=== PATIENT | female | born 1990 | race Hispanic/Latino ===

== ENCOUNTER 2016-11-07 16:01 | Emergency (ER) | payer SELFPAY ==
[2016-11-07] MEDS ORDERED: DUONEB 0.5 MG-3 MG/3 ML SOLN IH ONE (18:34)
[2016-11-07] MEDS ORDERED: DELTASONE PO ONE (18:35)
--- NOTE | 2016-11-07 18:50 | Emergency Department Report ---
ED General Adult HPI - General Chief complaint: Adult Asthma Stated complaint: ASTHMA/CHEST PAIN/COUGH Time Seen by Provider: 11/07/16 18:30 Source: patient Mode of arrival: Ambulatory Limitations: No Limitations - History of Present Illness Initial comments: PT c/o asthma exacerbation x 3 weeks. PT states she was seen for same thing in July and the RXs she got helped her. PT states she used the rest of her albuterol inhaler. PT states she ran out today. PT states her wheezing is worse at night and she did not want to be without her inhaler tonight. Complaint: asthma exacerbation Onset/Timin -: Gradual, week(s) Location: chest Severity scale (0 -10): 3 Quality: aching (when coughing ) Consistency: intermittent Improves with: other (RX medication ) Associated Symptoms: denies: fever/chills - Related Data Previous Rx's Medication Instructions Recorded Last Taken Type ALBUTEROL Inhaler [Proair] 2 puff IH QID PRN #1 inhalation 11/07/16 Unknown Rx Prednisone [predniSONE 10 mg 10 mg PO .TAPER #1 tab.ds.pk 11/07/16 Unknown Rx (6-Day Pack, 21 Tabs)] Promethazine /Codeine 5 ml PO Q6H PRN #100 ml 11/07/16 Unknown Rx [Phenergan/Codeine 6.25-10 mg/5Ml] Allergies Allergy/AdvReac Type Severity Reaction Status Date / Time No Known Allergies Allergy Verified 03/31/15 11:35 ED Review of Systems ROS: Stated complaint: ASTHMA/CHEST PAIN/COUGH Other details as noted in HPI Comment: All other systems reviewed and negative Constitutional: denies: chills, fever Respiratory: cough, wheezing, other (intermittent productive cough - yellow sputum ) Gastrointestinal: denies: nausea, vomiting ED Past Medical Hx - Past Medical History Previous Medical History?: Yes Hx Asthma: Yes Additional medical history: Bronchitis - Surgical History Past Surgical History?: No - Social History Smoking Status: Never Smoker Substance Use Type: Alcohol - Medications Home Medications: Home Medications Medication Instructions Recorded Confirmed Last Taken Type ALBUTEROL Inhaler [Proair] 2 puff IH QID PRN #1 inhalation 11/07/16 Unknown Rx Prednisone [predniSONE 10 mg 10 mg PO .TAPER #1 tab.ds.pk 11/07/16 Unknown Rx (6-Day Pack, 21 Tabs)] Promethazine /Codeine 5 ml PO Q6H PRN #100 ml 11/07/16 Unknown Rx [Phenergan/Codeine 6.25-10 mg/5Ml] ED Physical Exam - General Limitations: No Limitations General appearance: alert, in no apparent distress - Head Head exam: Present: atraumatic, normocephalic - Eye Eye exam: Present: normal appearance. Absent: conjunctival injection - ENT ENT exam: Present: normal exam, normal orophraynx, mucous membranes moist, TM's normal bilaterally, normal external ear exam - Neck Neck exam: Present: normal inspection. Absent: lymphadenopathy - Respiratory Respiratory exam: Present: wheezes (chela, L>R ). Absent: respiratory distress, rhonchi, stridor, chest wall tenderness, accessory muscle use - Cardiovascular Cardiovascular Exam: Present: regular rate, normal rhythm, normal heart sounds - Extremities Exam Extremities exam: Present: normal inspection, full ROM - Back Exam Back exam: Present: normal inspection. Absent: CVA tenderness (R), CVA tenderness (L) - Neurological Exam Neurological exam: Present: alert, oriented X3 - Psychiatric Psychiatric exam: Present: normal affect, normal mood - Skin Skin exam: Present: warm, dry, intact, normal color ED Course Vital Signs 11/07/16 11/07/16 16:29 19:52 Temperature 98.8 F Pulse Rate 78 67 Respiratory 20 16 Rate Blood Pressure 145/89 Blood Pressure 138/96 [Left] O2 Sat by Pulse 96 100 Oximetry - Reevaluation(s) Reevaluation #1: 11/07/16 18:52 PT aware of plan of care. Reevaluation #2: 11/07/16 19:38 PT states she is feeling much better. PT given strict return precautions. PT' s lungs cta at this time. - Pulse Oximetry Interpretation Digit-Finger Initial Pulse Oximetry Readin Actions Taken: none ED Medical Decision Making - Differential Diagnosis ashma, bronchitis Critical Care Time: No Critical care attestation.: If time is entered above; I have spent that time in minutes in the direct care of this critically ill patient, excluding procedure time. ED Disposition Clinical Impression: Asthma exacerbation Qualifiers: Asthma severity: unspecified severity Qualified Code(s): J45.901 - Unspecified asthma with (acute) exacerbation Disposition: DISCHARGED TO HOME OR SELFCARE Is pt being admited?: No Does the pt Need Aspirin: No Condition: Stable Instructions: Asthma (ED) Additional Instructions: no driving or ETOH after cough syrup Prescriptions: ALBUTEROL Inhaler [Proair] 2 puff IH QID PRN #1 inhalation PRN Reason: Shortness Of Breath Prednisone [predniSONE 10 mg (6-Day Pack, 21 Tabs)] 10 mg PO .TAPER #1 tab.ds.pk Promethazine /Codeine [Phenergan/Codeine 6.25-10 mg/5Ml] 5 ml PO Q6H PRN #100 ml PRN Reason: cough Referrals: PRIMARY CARE, [Primary Care Provider] - 3-5 Days [facility] [Outside] - 3-5 Days Time of Disposition: 19:39
[2016-11-07 19:53] VITALS: BP 138/96
== END 2016-11-07 19:53 | disposition home or self-care (01) ==
LOC: ED 16:01
DX: J45.901 Unspecified asthma with (acute) exacerbation (principal)
CPT/HCPCS: 99283; J7512

== ENCOUNTER 2017-01-01 21:56 | Emergency (ER) | payer SELFPAY ==
[2017-01-02] MEDS ORDERED: DUONEB 0.5 MG-3 MG/3 ML SOLN IH ONE ×2 (03:07→03:18)
[2017-01-02 03:10] VITALS: BP 127/78
[2017-01-02] MEDS ORDERED: DECADRON IM ONE (04:19)
[2017-01-02] MEDS ORDERED: PHENERGAN/CODEINE 6.25-10 MG/5ML PO ONE (04:20)
--- NOTE | 2017-01-02 05:57 | XRay Report ---
FINAL REPORT PROCEDURE: XR CHEST ROUTINE 2V TECHNIQUE: PA and lateral chest radiographs were obtained. CPT 12341 HISTORY: cough, wheezing COMPARISON: No prior studies are available for comparison. FINDINGS: Heart: Normal. Mediastinum/Vessels: Normal. Lungs/Pleural space: Normal. Bony thorax: No acute osseous abnormality. Other: IMPRESSION: Normal examination.
--- NOTE | 2017-01-02 06:25 | Emergency Department Report ---
ED Asthma HPI - General Chief Complaint: Adult Asthma Stated Complaint: ASTHMA Source: patient Mode of arrival: Ambulatory Limitations: No Limitations - History of Present Illness Initial Comments: 26 year old female presents to ED with wheezing and productive cough x1 week. patient has history of asthma and states she is out of her medication. patient is stable, neurologically intact and in no acute distress. MD Complaint: "asthma attack", shortness of breath, wheezing -: Gradual, week(s) Asthma History: childhood onset Severity: mild Context: ran out of meds Associated Symptoms: productive cough. denies: fever, chest pain - Related Data Current Asthma Therapy: inhaled bronchodilator Previous Rx's Medication Instructions Recorded Last Taken Type Promethazine /Codeine 5 ml PO Q6H PRN #100 ml 11/07/16 Unknown Rx [Phenergan/Codeine 6.25-10 mg/5Ml] ALBUTEROL Inhaler [ProAir HFA 2 puff IH QID PRN #1 inhalation 01/02/17 Unknown Rx Inhaler] Prednisone [predniSONE 10 mg 10 mg PO .TAPER #1 tab.ds.pk 01/02/17 Unknown Rx (6-Day Pack, 21 Tabs)] Allergies Allergy/AdvReac Type Severity Reaction Status Date / Time No Known Allergies Allergy Verified 03/31/15 11:35 ED Review of Systems ROS: Stated complaint: ASTHMA Other details as noted in HPI Constitutional: denies: chills, fever Eyes: denies: eye pain, eye discharge, vision change ENT: denies: ear pain, throat pain Respiratory: cough, shortness of breath, wheezing Cardiovascular: denies: chest pain, palpitations Endocrine: no symptoms reported Gastrointestinal: denies: abdominal pain, nausea, diarrhea Genitourinary: denies: urgency, dysuria, discharge Musculoskeletal: denies: back pain, joint swelling, arthralgia Skin: denies: rash, lesions Neurological: denies: headache, weakness, paresthesias Psychiatric: denies: anxiety, depression Hematological/Lymphatic: denies: easy bleeding, easy bruising ED Past Medical Hx - Past Medical History Previous Medical History?: Yes Hx Asthma: Yes Additional medical history: Bronchitis - Surgical History Past Surgical History?: No - Social History Smoking Status: Former Smoker Substance Use Type: None - Medications Home Medications: Home Medications Medication Instructions Recorded Confirmed Last Taken Type Promethazine /Codeine 5 ml PO Q6H PRN #100 ml 11/07/16 Unknown Rx [Phenergan/Codeine 6.25-10 mg/5Ml] ALBUTEROL Inhaler [ProAir HFA 2 puff IH QID PRN #1 inhalation 01/02/17 Unknown Rx Inhaler] Prednisone [predniSONE 10 mg 10 mg PO .TAPER #1 tab.ds.pk 01/02/17 Unknown Rx (6-Day Pack, 21 Tabs)] ED Physical Exam - General Limitations: No Limitations General appearance: alert, in no apparent distress - Head Head exam: Present: atraumatic, normocephalic - Eye Eye exam: Present: normal appearance - ENT ENT exam: Present: mucous membranes moist - Neck Neck exam: Present: normal inspection - Respiratory Respiratory exam: Present: wheezes - Expanded Respiratory Exam Expanded Location: Wheezes: Right, Left, Upper, Lower - Cardiovascular Cardiovascular Exam: Present: regular rate, normal rhythm. Absent: systolic murmur, diastolic murmur, rubs, gallop - GI/Abdominal GI/Abdominal exam: Present: soft, normal bowel sounds. Absent: distended, tenderness, guarding - Extremities Exam Extremities exam: Present: normal inspection, full ROM - Back Exam Back exam: Present: normal inspection, full ROM - Neurological Exam Neurological exam: Present: alert, oriented X3, normal gait - Psychiatric Psychiatric exam: Present: normal affect, normal mood - Skin Skin exam: Present: warm, dry, intact, normal color. Absent: rash ED Course Vital Signs 01/01/17 01/02/17 22:22 03:07 Temperature 98.4 F 98.1 F Pulse Rate 107 H 87 Respiratory 22 26 H Rate Blood Pressure 138/99 Blood Pressure 127/78 [Left] O2 Sat by Pulse 99 98 Oximetry ED Medical Decision Making - Lab Data Lab Results 01/02/17 Range/Units 03:05 Urine HCG, Qual Negative (Negative) - Radiology Data Radiology results: report reviewed Chest xray Normal examination - Medical Decision Making 26 year old female presents to ED with asthma exacerbation, wheezing, cough x1 week. patient has recieved IM steroids, codeine cough syrup and breathing treatment during ED visit and no longer has wheezing in any lung greer prior to discharge. patient's respiratory rate has been taken manually by provider and is 18 breaths per minute prior to discharge. patient has no labored breathing or respiratory distress prior to discharge and talking in complete sentences. patient will be given RX for proair, oral steroids. patient is stable,neurologically intact and in no acute distress. Critical care attestation.: If time is entered above; I have spent that time in minutes in the direct care of this critically ill patient, excluding procedure time. ED Disposition Clinical Impression: Asthma exacerbation Disposition: DISCHARGED TO HOME OR SELFCARE Is pt being admited?: No Does the pt Need Aspirin: No Condition: Stable Instructions: Asthma (ED) Prescriptions: ALBUTEROL Inhaler [ProAir HFA Inhaler] 2 puff IH QID PRN #1 inhalation PRN Reason: Shortness Of Breath Prednisone [predniSONE 10 mg (6-Day Pack, 21 Tabs)] 10 mg PO .TAPER #1 tab.ds.pk Referrals: PRIMARY CARE, [Primary Care Provider] - 3-5 Days
== END 2017-01-02 06:46 | disposition home or self-care (01) ==
LOC: ED 21:56
DX: J45.901 Unspecified asthma with (acute) exacerbation (principal); Z87.891 Personal history of nicotine dependence
CPT/HCPCS: 71020; 81025; 96372; 99283; J1100

== ENCOUNTER 2017-02-05 18:01 | Emergency (ER) | payer SELFPAY ==
[2017-02-05] MEDS ORDERED: DUONEB 0.5 MG-3 MG/3 ML SOLN IH ONE (19:26)
--- NOTE | 2017-02-05 22:00 | Emergency Department Report ---
- General Chief Complaint: Upper Respiratory Infection Stated Complaint: COUGH/SOB/CHEST PAIN Time Seen by Provider: 02/05/17 19:57 Source: patient Mode of arrival: Ambulatory Limitations: No Limitations - History of Present Illness Initial Comments: This is a 26-year-old female well-nourished with nontoxic or ill in appearance presents with a productive cough for the past month. Patient stated has been diagnosed with bronchitis and asthma last month and was treated with steroids with minimal relief. Associated symptoms includes productive cough that is yellowish, wheezing, subjective fever and chills. Patient denies any shortness of breath, chest pain, headache, dizziness, stiff neck, blurry vision, numbness , tingling, nausea or vomiting. Patient states allergies to asthma. Denies any drug allergies. MD Complaint: cough (productive yellowish) -: Gradual, month(s) (1) Severity: mild Severity scale (0 -10): 0 Consistency: constant Improves With: nothing Worsens With: nothing Associated Symptoms: fever, chills, cough (productive yellowish). denies: myalgias, diaphoresis, headache, rhinorrhea, nasal congestion, sore throat, stiff neck, chest pain, shortness of breath, abdominal pain, nausea, vomiting, diarrhea, dysuria, rash, confusion, right sweats, weight loss, epistaxis, hoarseness, ear pain Treatments Prior to Arrival: none - Related Data Previous Rx's Medication Instructions Recorded Last Taken Type Promethazine /Codeine 5 ml PO Q6H PRN #100 ml 11/07/16 Unknown Rx [Phenergan/Codeine 6.25-10 mg/5Ml] ALBUTEROL Inhaler [ProAir HFA 2 puff IH QID PRN #1 inhalation 01/02/17 Unknown Rx Inhaler] Prednisone [predniSONE 10 mg 10 mg PO .TAPER #1 tab.ds.pk 01/02/17 Unknown Rx (6-Day Pack, 21 Tabs)] ALBUTEROL Inhaler [ProAir HFA 2 puff IH QID PRN #1 inhalation 02/05/17 Unknown Rx Inhaler] Azithromycin [Zithromax Z-JER] 250 mg PO DAILY #6 tablet 02/05/17 Unknown Rx predniSONE [Deltasone] 20 mg PO BID #10 tab 02/05/17 Unknown Rx Allergies Allergy/AdvReac Type Severity Reaction Status Date / Time No Known Allergies Allergy Verified 03/31/15 11:35 ED Review of Systems ROS: Stated complaint: COUGH/SOB/CHEST PAIN Other details as noted in HPI Constitutional: denies: chills, fever Eyes: denies: eye pain, eye discharge, vision change ENT: denies: ear pain, throat pain Respiratory: denies: cough, shortness of breath, wheezing Cardiovascular: denies: chest pain, palpitations Endocrine: no symptoms reported Gastrointestinal: denies: abdominal pain, nausea, diarrhea Genitourinary: denies: urgency, dysuria, discharge Musculoskeletal: denies: back pain, joint swelling, arthralgia Skin: denies: rash, lesions Neurological: denies: headache, weakness, paresthesias Psychiatric: denies: anxiety, depression Hematological/Lymphatic: denies: easy bleeding, easy bruising ED Past Medical Hx - Past Medical History Hx Asthma: Yes Additional medical history: Bronchitis - Social History Smoking Status: Never Smoker Substance Use Type: None - Medications Home Medications: Home Medications Medication Instructions Recorded Confirmed Last Taken Type Promethazine /Codeine 5 ml PO Q6H PRN #100 ml 11/07/16 Unknown Rx [Phenergan/Codeine 6.25-10 mg/5Ml] ALBUTEROL Inhaler [ProAir HFA 2 puff IH QID PRN #1 inhalation 01/02/17 Unknown Rx Inhaler] Prednisone [predniSONE 10 mg 10 mg PO .TAPER #1 tab.ds.pk 01/02/17 Unknown Rx (6-Day Pack, 21 Tabs)] ALBUTEROL Inhaler [ProAir HFA 2 puff IH QID PRN #1 inhalation 02/05/17 Unknown Rx Inhaler] Azithromycin [Zithromax Z-JER] 250 mg PO DAILY #6 tablet 02/05/17 Unknown Rx predniSONE [Deltasone] 20 mg PO BID #10 tab 02/05/17 Unknown Rx ED Physical Exam - General Limitations: No Limitations General appearance: alert, in no apparent distress - Head Head exam: Present: atraumatic, normocephalic, normal inspection - Eye Eye exam: Present: normal appearance, PERRL, EOMI. Absent: scleral icterus, conjunctival injection, nystagmus, periorbital swelling, periorbital tenderness Pupils: Present: normal accommodation - ENT ENT exam: Present: normal exam, normal orophraynx, mucous membranes moist, TM's normal bilaterally, normal external ear exam - Neck Neck exam: Present: normal inspection, full ROM. Absent: tenderness, meningismus, lymphadenopathy, thyromegaly - Respiratory Respiratory exam: Present: normal lung sounds bilaterally, wheezes (bilateral upper and lower lobes). Absent: respiratory distress, rales, rhonchi, stridor, chest wall tenderness, accessory muscle use, decreased breath sounds, prolonged expiratory - Cardiovascular Cardiovascular Exam: Present: regular rate, normal rhythm, normal heart sounds. Absent: bradycardia, tachycardia, irregular rhythm, systolic murmur, diastolic murmur, rubs, gallop - GI/Abdominal GI/Abdominal exam: Present: soft, normal bowel sounds. Absent: distended, tenderness, guarding, rebound, rigid, diminished bowel sounds, hyperactive bowel sounds, hypoactive bowel sounds - Rectal Rectal exam: Present: deferred - Extremities Exam Extremities exam: Present: normal inspection, full ROM, normal capillary refill. Absent: tenderness, pedal edema, joint swelling, calf tenderness - Back Exam Back exam: Present: normal inspection, full ROM. Absent: tenderness, CVA tenderness (R), CVA tenderness (L), muscle spasm, paraspinal tenderness, vertebral tenderness, rash noted - Neurological Exam Neurological exam: Present: alert, oriented X3, CN II-XII intact, normal gait - Psychiatric Psychiatric exam: Present: normal affect, normal mood. Absent: depressed, agitated - Skin Skin exam: Present: warm, dry, intact, normal color. Absent: rash ED Course Vital Signs 02/05/17 02/05/17 02/05/17 19:23 19:35 19:46 Temperature 98.6 F Pulse Rate 80 Pulse Rate [ 71 75 Posterior Bilateral Throughout] Respiratory 18 Rate Respiratory 20 20 Rate [Posterior Bilateral Throughout] Blood Pressure 150/116 O2 Sat by Pulse 100 Oximetry - Reevaluation(s) Reevaluation #1: 02/05/17 22:20 Patient is watching tv and stated feels much better after DuoNeb & Solu-Medrol treatment. No signs of distress noted. ED Medical Decision Making - Medical Decision Making Ed cours: This is a 26-year-old female that presents with upper respiratory infection 1-after my physical exam, patient received a chest x-ray to rule out pneumonia. Dictated by Dr. Victoria; 2- patient received Z-Jer and was instructed to finish full course of antibiotics as prescribed. 3. Patient was also instructed to follow-up with her primary care doctor in 3- 5 days or if symptoms worsen return back to emergency as soon as possible.- 4- at time time of discharge, the patient does not seem toxic or ill in appearance. No acute signs of distress noted. Patient agrees to discharge treatment plan of care. No further questions noted by the patient. 5- Patient also received albuterol and prednisone at the time of discharge. I educated patient how to a use albuterol on patient states she understands and agrees to the plan of care at the time of discharge. Critical care attestation.: If time is entered above; I have spent that time in minutes in the direct care of this critically ill patient, excluding procedure time. ED Disposition Clinical Impression: Upper respiratory infection Qualifiers: URI type: unspecified URI Qualified Code(s): J06.9 - Acute upper respiratory infection, unspecified Disposition: DC- TO HOME OR SELFCARE Is pt being admited?: No Does the pt Need Aspirin: No Condition: Stable Instructions: Upper Respiratory Infection (ED), Azithromycin (By mouth), Albuterol (By breathing), Prednisone (By mouth) Additional Instructions: A full course of antibiotics as prescribed. Take prednisone as prescribed as well. Take albuterol as educated as needed during difficulty breathing. Follow-up with her primary care doctor in 3-5 days or if symptoms worsen return back to emergency room as soon as possible. Prescriptions: ALBUTEROL Inhaler [ProAir HFA Inhaler] 2 puff IH QID PRN #1 inhalation PRN Reason: Shortness Of Breath Azithromycin [Zithromax Z-JER] 250 mg PO DAILY #6 tablet predniSONE [Deltasone] 20 mg PO BID #10 tab Referrals: PRIMARY CARE, [Primary Care Provider] - 3-5 Days RICK BAL JR, MD [Staff Physician] - 3-5 Days [facility] [Outside] - 3-5 Days [facility] [Outside] - 3-5 Days Forms: Work/School Release Form(ED)
--- NOTE | 2017-02-05 22:34 | XRay Report ---
FINAL REPORT PROCEDURE: XR CHEST ROUTINE 2V TECHNIQUE: PA and lateral views of the chest are submitted. HISTORY: wheezing with hx of pna COMPARISON: Chest two views 01/02/2017 FINDINGS: The trachea is midline. The heart is normal in size. The lungs are clear. There is no evident pneumothorax or pleural fluid. The thoracic cage is intact. Left nipple ring is noted. IMPRESSION: No radiographically evident acute cardiopulmonary disease.
[2017-02-05 23:10] VITALS: BP 131/90
== END 2017-02-05 23:09 | disposition home or self-care (01) ==
LOC: ED 18:01
DX: J06.9 Acute upper respiratory infection, unspecified (principal); J45.909 Unspecified asthma, uncomplicated
CPT/HCPCS: 71020; 94640; 96372; 99283; J2930

== ENCOUNTER 2017-03-03 20:51 | Emergency (ER) | payer SELFPAY ==
[2017-03-03] MEDS ORDERED: PROVENTIL IH ONE (21:14)
[2017-03-03 21:35] LABS: Hemoglobin 13.6 gm/dl (10.1-14.3); Mean Corpuscular HGB Conc 34 % (30-34); Mean Corpuscular Hemoglobin 31 pg (28-32); Mean Corpuscular Volume 93 fl (79-97); Platelet Count 360 K/mm3 (140-440); Red Blood Count 4.32 M/mm3 (3.65-5.03); White Blood Count 7.5 K/mm3 (4.5-11.0)
--- NOTE | 2017-03-03 21:42 | XRay Report ---
FINAL REPORT EXAM: XR CHEST ROUTINE 2V HISTORY: Shortness of breath TECHNIQUE: PA and lateral chest radiographs PRIORS: Chest radiograph 02/05/2017 FINDINGS: No focal consolidations are seen in the lungs and there are no pleural effusions.The cardiomediastinal silhouette is within normal limits for size and contour. No acute osseous abnormality is identified. IMPRESSION: 1. No definite radiographic evidence of acute cardiopulmonary disease. 2. No focal infiltrate is identified.
[2017-03-03 21:52] LABS: Anion Gap 18 mmol/L; Blood Urea Nitrogen 8 mg/dL (7-17); Calcium 8.8 mg/dL (8.4-10.2); Carbon Dioxide 22 mmol/L (22-30); Chloride 100.6 mmol/L (98-107); Glucose 83 mg/dL (65-100); Potassium 3.5 mmol/L (3.6-5.0); Sodium 137 mmol/L (137-145)
[2017-03-03 22:25] LABS: Basophils % (Manual) 0 % (0.0-1.8); Blastocytes % (Manual) 0 %
[2017-03-03 22:26] LABS: Diff Status Complete; Platelet Estimate Consistent w Auto; RBC Morphology Normal
[2017-03-04] MEDS ORDERED: ZITHROMAX PO ONE (01:30)
[2017-03-04] MEDS ORDERED: TYLENOL/CODEINE PO ONE (01:30)
[2017-03-04] MEDS ORDERED: DUONEB *Not for PRN Use IH ONE (01:30)
--- NOTE | 2017-03-04 01:34 | Emergency Department Report ---
HPI - General Chief Complaint: Dyspnea/Respdistress Time Seen by Provider: 03/04/17 01:24 - HPI HPI: She is a 26-year-old female with a history of asthma on Proventil inhaler who presents to ED complaining of cough and shortness of breath for the past 10 days. Patient states about 10 days ago she started to experience some coughing. She states cough is dry and nonproductive. Patient states a couple days ago cough is nonproductive with yellowish brownish mucus from intermittent coughing. Patient states cough and is also blood worse. Patient states she used her inhaler which was not working. She states she is some fever and chills and intermittent sweating. She denies chest pain/abdominal pain/diarrhea/constipation/headache/blurred visions or any other problems. ED Past Medical Hx - Past Medical History Hx Asthma: Yes Additional medical history: Bronchitis, pnuemonia - Surgical History Past Surgical History?: No - Social History Smoking Status: Former Smoker Substance Use Type: None - Medications Home Medications: Home Medications Medication Instructions Recorded Confirmed Last Taken Type ALBUTEROL Inhaler [ProAir HFA 2 puff IH QID PRN #1 inhalation 02/05/17 Unknown Rx Inhaler] Azithromycin [Zithromax Z-JER] 250 mg PO DAILY #6 tablet 02/05/17 Unknown Rx predniSONE [Deltasone] 20 mg PO BID #10 tab 02/05/17 Unknown Rx ALBUTEROL Inhaler [ProAir HFA 2 puff IH QID PRN #1 inhalation 03/04/17 Unknown Rx Inhaler] Azithromycin [Zithromax TAB] 250 mg PO DAILY #4 tablet 03/04/17 Unknown Rx Prednisone [predniSONE 10 mg 10 mg PO .TAPER #1 tab.ds.pk 03/04/17 Unknown Rx (6-Day Pack, 21 Tabs)] Promethazine /Codeine 5 ml PO Q6H PRN #100 ml 03/04/17 Unknown Rx [Phenergan/Codeine 6.25-10 mg/5 ml] ED Review of Systems ROS: Stated complaint: SOB, FEVER, CHEST PAIN Other details as noted in HPI Constitutional: denies: chills, fever Eyes: denies: eye pain, eye discharge, vision change ENT: denies: ear pain, throat pain, dental pain, hearing loss, congestion Respiratory: cough, shortness of breath, wheezing Cardiovascular: denies: chest pain, palpitations Endocrine: no symptoms reported Gastrointestinal: denies: abdominal pain, nausea, vomiting, diarrhea, constipation Genitourinary: denies: urgency, dysuria, frequency, hematuria, discharge Musculoskeletal: denies: back pain, joint swelling, arthralgia Skin: denies: rash, lesions Neurological: denies: headache, weakness, numbness, paresthesias, confusion Psychiatric: denies: anxiety, depression Hematological/Lymphatic: denies: easy bleeding, easy bruising Physical Exam - Physical Exam Vital Signs: Vital Signs 03/03/17 21:06 Temperature 98.3 F Pulse Rate 101 H Respiratory 26 H Rate Blood Pressure 120/80 Blood Pressure 120/80 [Left] O2 Sat by Pulse 100 Oximetry Physical Exam: GENERAL: Alert and oriented x3, no apparent distress, Normal Gait, atraumatic. HEAD: Head is normocephalic and a-traumatic. NOSE: Nose symetrical, Nontender,Nares appeared normal. MOUTH:Mouth is well hydrated and without lesions. Tonsils nonerythematous or swollen, Uvula midline, Tongue not elevated. Mucous membranes are moist. Posterior pharynx clear, no exudate or lesions. Patent airways. NECK: Supple. Non edematous, No carotid bruits. No lymphadenopathy or thyromegaly. No C-spine tenderness LUNGS: Symetrical with respiration, bilateral wheezing, no rales or crackles, CTAB. 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 Non tender to palpation ABDOMEN: No organomegaly was noted,Positive bowel sounds, soft, and non- distended. . Nontender to palpation on all Quadrants, NO CVA tenderness. SKIN: Warm and dry, No lesions, No ulceration or induration present. ED Course Vital Signs 03/03/17 21:06 Temperature 98.3 F Pulse Rate 101 H Respiratory 26 H Rate Blood Pressure 120/80 Blood Pressure 120/80 [Left] O2 Sat by Pulse 100 Oximetry ED Medical Decision Making - Lab Data Result diagrams: 03/03/17 21:17 03/03/17 21:17 - EKG Data EKG shows normal: sinus rhythm Rate: normal - EKG Data When compared to previous EKG there are: no significant change (from EKG from ) 03/04/17 01:35 Left [place] deviation - Medical Decision Making 26-year-old female presents with upper respiratory infection/bronchitis ED course: She received 1 dose of azithromycin, 2 breathing treatments, Tylenol with codeine for coughing 60 mg of prednisone CBC, CMP, cardiac enzymes, test, EKG, chest x-ray ordered on patient. labs all within normal limits negative troponin, negative test. Chest x-ray, shows no acute cardiopulmonary infiltrates or process Discussed this findings with patient. Reports feeling better after secondary to present treatment. Discussed the patient to follow up with primary care physician. Discussed the antibiotics and home medications as prescribed. Vital signs are normalized home patient is in no acute or respiratory distress Patient reports to feeling much better Critical care attestation.: If time is entered above; I have spent that time in minutes in the direct care of this critically ill patient, excluding procedure time. ED Disposition Clinical Impression: Asthma exacerbation Qualifiers: Asthma severity: mild intermittent Qualified Code(s): J45.21 - Mild intermittent asthma with (acute) exacerbation URI (upper respiratory infection) Qualifiers: URI type: unspecified URI Qualified Code(s): J06.9 - Acute upper respiratory infection, unspecified Disposition: DC-01 TO HOME OR SELFCARE Is pt being admited?: No Does the pt Need Aspirin: No Condition: Stable Instructions: Asthma (ED), Upper Respiratory Infection (ED), Acute Bronchitis ( ED), Chronic Bronchitis (ED) Prescriptions: ALBUTEROL Inhaler [ProAir HFA Inhaler] 2 puff IH QID PRN #1 inhalation PRN Reason: Shortness Of Breath Azithromycin [Zithromax TAB] 250 mg PO DAILY #4 tablet Prednisone [predniSONE 10 mg (6-Day Pack, 21 Tabs)] 10 mg PO .TAPER #1 tab.ds.pk Promethazine /Codeine [Phenergan/Codeine 6.25-10 mg/5 ml] 5 ml PO Q6H PRN #100 ml PRN Reason: cough Referrals: PRIMARY CARE, [Primary Care Provider] - 3-5 Days DEEP HILTON MD [Referring] - 3-5 Days [facility] [Outside] - 3-5 Days Forms: Accompanied Note, Work/School Release Form(ED)
[2017-03-04] MEDS ORDERED: DELTASONE PO ONE (01:58)
[2017-03-04 02:46] VITALS: BP 129/83
== END 2017-03-04 02:46 | disposition home or self-care (01) ==
LOC: ED 20:51
DX: J45.21 Mild intermittent asthma with (acute) exacerbation (principal); J06.9 Acute upper respiratory infection, unspecified; J18.9 Pneumonia, unspecified organism; Z87.891 Personal history of nicotine dependence
CPT/HCPCS: 36415; 71020; 80048; 84484; 84703; 85007; 85025; 93005; 93010; 94640; 99284; J7512